=== PATIENT | female | born 1985 | race Caucasian/White ===

== ENCOUNTER 2017-11-16 11:21 | Emergency (ER) | payer SELFPAY ==
[~2017-11-16] VITALS: Ht 160 cm; Wt 54.0 kg
[2017-11-16] MEDS ORDERED: FLUORESCEIN SODIUM 1MG/STRIP BOTHEYE ONE (13:15)
[2017-11-16] MEDS ORDERED: TETRACAINE 0.5% OPHTH DROPS 4ML BOTHEYE ONE (13:15)
[2017-11-16] MEDS ORDERED: CIPROFLOXACIN 0.3% OPHTH SOLN 2.5ML LEFTEYE ONE (15:30)
[2017-11-16 15:54] VITALS: BP 117/64
== END 2017-11-16 16:02 | disposition home or self-care (01) ==
LOC: ER 11:34
DX: H16.002 Unspecified corneal ulcer, left eye (principal); F31.9 Bipolar disorder, unspecified
CPT/HCPCS: 99283